=== PATIENT | male | born 1970 | race Caucasian/White ===

== ENCOUNTER 2018-03-28 21:42 | Emergency (ER) | payer OTHER, MEDICAID ==
[~2018-03-28] VITALS: Ht 165.1 cm; Wt 72.6 kg
--- NOTE | 2018-03-28 21:42 | NUR ---
[facility] PD for pre-booking medical screening exam. RN evaluating patient in [place].
[2018-03-28 21:45] VITALS: BP 131/84
[2018-03-28 22:42] VITALS: BP 130/80
--- NOTE | 2018-03-28 22:42 | NUR ---
Patient discharged with v/s stable. Written and verbal after care instructions given and explained. Patient verbalized understanding. Ambulatory with steady gait. All questions addressed prior to discharge. Advised to follow up with PMD. Pt accompanied by PD.
== END 2018-03-28 22:42 ==
LOC: MED 21:42
DX: Z02.89 Encounter for other administrative examinations (principal)
CPT/HCPCS: 99283

== ENCOUNTER 2019-02-06 19:13 | Emergency (ER) | payer OTHER, MEDICAID ==
[~2019-02-06] VITALS: Ht 165.1 cm; Wt 59.0 kg
[2019-02-06 19:16] VITALS: BP 118/78
--- NOTE | 2019-02-06 19:22 | NUR ---
PT BIBA C/O G-TUB DISLODGED. PT PRESENTS TO THE ER W/ SKINNER IN PLACE TO KEEP FISTULA PATENT, REPORT FROM [facility] WAS PT PULLED OUT HIS OWN G-TUB. NO REDNESS, SWELLING OR DISCHARGE NOTED TO SITE. --SKIN WARM, DRY AND INTACT. GCS OF 10, BASELINE ACCORDING TO [facility]. CAP REFIL <3. PMH: CARNIOTOMY 2017, HYPOTHYROIDISM, CIRRHOSIS, ASPHASIA RX: SEE LIST Addendum: 02/06/19 at 2109 by [email or web address] PT BIBA C/O G-TUB DISLODGED. PT PRESENTS TO THE ER W/ SKINNER IN PLACE TO KEEP FISTULA PATENT, REPORT FROM [facility] WAS PT PULLED OUT HIS OWN G-TUB. NO REDNESS, SWELLING OR DISCHARGE NOTED TO SITE. --SKIN WARM, DRY AND INTACT. GCS OF 10, BASELINE ACCORDING TO [facility]. CAP REFIL <3. PT IN GOWN, IN BED; BED IN LOWER LOCKED POSITION. ER MD AWARE OF PT STATUS. SAFETY PRECAUTIONS IN PLACE. WILL CONTINUE TO MONITOR. PMH: CARNIOTOMY 2017, HYPOTHYROIDISM, CIRRHOSIS, ASPHASIA RX: SEE LIST
[2019-02-06] MEDS ORDERED: PRON INH (19:30)
[2019-02-06] MEDS ORDERED: EMTR1TAB12 GT (19:30)
[2019-02-06] MEDS ORDERED: ASCO500C15 GT (19:30)
[2019-02-06] MEDS ORDERED: PHOS1PDR4 GT (19:30)
[2019-02-06] MEDS ORDERED: LEVO0.1T18 GT (19:30)
[2019-02-06] MEDS ORDERED: LACT10SO1 GT (19:30)
[2019-02-06] MEDS ORDERED: MODA100T13 GT (19:30)
[2019-02-06] MEDS ORDERED: KEP500L GT (19:30)
[2019-02-06] MEDS ORDERED: NUTR-480 GT (19:30)
[2019-02-06] MEDS ORDERED: SULF-59 GT (19:30)
[2019-02-06] MEDS ORDERED: ROB1 GT (19:30)
[2019-02-06] MEDS ORDERED: RALT400T GT (19:30)
[2019-02-06] MEDS ORDERED: LANS15EC28 GT (19:30)
[2019-02-06] MEDS ORDERED: MULT-1869 GT (19:30)
--- NOTE | 2019-02-06 19:35 | NUR ---
G-TUB PLACED BY DR. RAMÍREZ: 3 PORT; 20F, TUBE IN PLACE AT 6 CM LINE. FLUSHED WELL W/O RESISTANCE; SIGHT BENIGN. X-RAY ORDERED TO VERIFY PLACEMENT.
--- NOTE | 2019-02-06 20:25 | NUR ---
[place] [facility] [place] BEEN DISCHARGE BY DR. RAMÍREZ. SPOKE W/ WILLIE, G-TUB HAS BEEN PLACED AND VERIFIED BY X-RAY. [facility] CALLED, ETA 2100.
--- NOTE | 2019-02-06 20:50 | NUR ---
UNRULY-CARE, GOWN CHANGE AND COMFORT MEASURES PROVIDED.
--- NOTE | 2019-02-06 21:15 | NUR ---
[facility] AT BEDSIDE FOR TRANSPORT, REPORT GIVEN. VSS. PT ACTING APPROPRIATLY TO BASELINE. Addendum: 02/06/19 at 2119 by [email or web address] [facility] AT BEDSIDE FOR TRANSPORT, REPORT GIVEN. VSS. PT ACTING APPROPRIATLY TO BASELINE. Written instructions given and explained. [facility]ulance Transport back to [facility]. All questions addressed prior to discharge. Advised to follow up with PMD.
[2019-02-06 21:20] VITALS: BP 120/67
== END 2019-02-06 21:15 | disposition home or self-care (01) ==
LOC: MED 19:13
DX: Z43.1 Encounter for attention to gastrostomy (principal); E07.9 Disorder of thyroid, unspecified; Z79.899 Other long term (current) drug therapy
CPT/HCPCS: 43762; 74241; 99284; Q0092